=== PATIENT | female | born 1985 | race Caucasian/White ===

== ENCOUNTER 2018-03-27 09:24 | Emergency (ER) | payer OTHER ==
--- NOTE | 2018-03-27 09:44 | ER Document Report ---
ED Medical Screen (RME) - General Chief Complaint: Vag Bleeding, +preg <12wks Stated Complaint: VAGINAL BLEEDING Time Seen by Provider: 03/27/18 09:36 Notes: 33-year-old female patient to the emergency department chief complaint of vaginal bleeding and . was diagnosed last week at [facility] with blood work. Patient is a positive Rh+. Having some spotting. No pain at this time but pain at maximum was 3. Has not passed out. Does not feel dizzy. Cramping lower abdominal pelvic pain when it comes on with some mild spotting. I have greeted and performed a rapid initial assessment of this patient. A comprehensive ED assessment and evaluation of the patient, analysis of test results and completion of the medical decision making process will be conducted by additional ED providers. TRAVEL OUTSIDE OF THE [place] IN LAST 30 DAYS: No - Related Data Allergies/Adverse Reactions: cephalexin [From Keflex] Allergy (Verified 03/27/18 09:25) latex Allergy (Verified 03/27/18 09:25) Past Medical History Psychiatric Medical History: Reports: Hx Anxiety Past Surgical History: Reports: Hx Herniorrhaphy, Hx Inguinal Hernia, Hx Oral Surgery, Hx Tonsillectomy - Immunizations Immunizations up to date: Yes Hx Diphtheria, Pertussis, Tetanus Vaccination: Yes Review of Systems - Review of Systems Notes: Review of systems positive for vaginal bleeding. Pelvic cramping. Positive . Physical Exam - Vital signs Vitals: Temp Pulse Resp BP Pulse Ox 98.4 F 82 16 123/73 98 03/27/18 09:30 03/27/18 09:30 03/27/18 09:30 03/27/18 09:30 03/27/18 09:30 - General General appearance: Appears well, Alert - Abdominal Inspection: Normal Distension: No distension Bowel sounds: Normal Tenderness: Nontender. No: Tender, Guarding, Rebound Organomegaly: No organomegaly Course - Vital Signs Vital signs: Temp Pulse Resp BP Pulse Ox 98.4 F 82 16 123/73 98 03/27/18 09:30 03/27/18 09:30 03/27/18 09:30 03/27/18 09:30 03/27/18 09:30 Doctor's Discharge - Discharge Referrals: TELMA RAMOS MD [Primary Care Provider] - Follow up as needed
--- NOTE | 2018-03-27 10:03 | ER Document Report ---
ED General - General Chief Complaint: Vag Bleeding, +preg <12wks Stated Complaint: VAGINAL BLEEDING Time Seen by Provider: 03/27/18 09:36 TRAVEL OUTSIDE OF THE [place] IN LAST 30 DAYS: No - HPI Notes: Patient is a 33-year-old female was approximately 7 weeks who presents to the ED complaining of intermittent abdominal cramping and pain with light vaginal bleeding that began last night. Patient states that she currently does not have any pain. She has been eating and drinking without difficulties. She is urinating normally and having normal bowel movements. The pain does not radiate when she does have it. Patient states that she is Rh+ . She has no other concerns or complaints. She was evaluated new hospital about a week ago. Denies any headache, fever, URI, sore throat, chest pain, palpitations, syncope, cough, shortness of breath, wheeze, dyspnea, nausea/ vomiting/diarrhea, urinary retention, dysuria, hematuria, back pain, loss of control of bowel or bladder, numbness/tingling, muscle paralysis/weakness, or rash. - Related Data Allergies/Adverse Reactions: cephalexin [From Keflex] Allergy (Verified 03/27/18 09:25) latex Allergy (Verified 03/27/18 09:25) Past Medical History - Social History Smoking Status: Never Smoker Frequency of alcohol use: None Drug Abuse: None Family History: Reviewed & Not Pertinent Patient has suicidal ideation: No Patient has homicidal ideation: No Renal/ Medical History: Denies: Hx Peritoneal Dialysis Psychiatric Medical History: Reports: Hx Anxiety Past Surgical History: Reports: Hx Herniorrhaphy, Hx Inguinal Hernia, Hx Oral Surgery, Hx Tonsillectomy - Immunizations Immunizations up to date: Yes Hx Diphtheria, Pertussis, Tetanus Vaccination: Yes Review of Systems - Review of Systems -: Yes All other systems reviewed and negative Physical Exam - Vital signs Vitals: Temp Pulse Resp BP Pulse Ox 98.4 F 82 16 123/73 98 03/27/18 09:30 03/27/18 09:30 03/27/18 09:30 03/27/18 09:30 03/27/18 09:30 - Notes Notes: PHYSICAL EXAMINATION: GENERAL: Well-appearing, well-nourished and in no acute distress. LUNGS: Breath sounds clear to auscultation bilaterally and equal. No wheezes rales or rhonchi. HEART: Regular rate and rhythm without murmurs, rubs, gallops. ABDOMEN: Soft, nontender, nondistended abdomen. No guarding, no rebound. No masses appreciated. Normal bowel sounds present. No CVA tenderness bilaterally. : deferred Musculoskeletal: FROM to passive/active. Strength 5+/5. Extremities: No cyanosis, clubbing, or edema b/l. Peripheral pulses 2+. Capillary refill less than 3 seconds. NEUROLOGICAL: Normal speech, normal gait. PSYCH: Normal mood, normal affect. SKIN: Warm, Dry, normal turgor, no rashes or lesions noted. Course - Re-evaluation Re-evalutation: 03/27/18 11:28 Patient is an afebrile, well-hydrated, 33-year-old female who presents to the ED with a gestational sac noted within the uterus and pain/bleeding in early . Vitals are acceptable without any significant tachycardia, tachypnea , or hypoxia. PE is otherwise unremarkable. CBC, CMP, lipase unremarkable for acute pathology. HCG at 1344. TVUS shows evidence of the gest sac w/o sac measuring approx 6wk 1 day. + subchorionic hemorrhage noted. UA unremarkable. Patient is nontoxic-appearing is tolerating p.o. without any difficulties. No other labs or imaging warranted at this time based on H&P. Low suspicion/risk for acute appendicitis, bowel obstruction, acute cholecystitis, acute cholangitis, perforated diverticulitis, incarcerated hernia , pancreatitis, perforated ulcer, peritonitis, sepsis, pelvic inflammatory disease, ectopic , tubo-ovarian abscess, ovarian torsion, or other systemic emergent condition at this time. Patient is aware that her condition can change from initial presentation and she needs to monitor symptoms closely and seek medical attention if any acute changes. Recheck HCG in 2-3 days, may need repeat US next week as well. Conservative measures otherwise for symptoms. Recheck with your PCM/OBGYN in 3-5 days. Return to the ED with any worsening/concerning symptoms otherwise as reviewed in discharge. Patient is in agreement. - Vital Signs Vital signs: Temp Pulse Resp BP Pulse Ox 98.4 F 82 16 123/73 98 03/27/18 09:30 03/27/18 09:30 03/27/18 09:30 03/27/18 09:30 03/27/18 09:30 - Laboratory Result Diagrams: 03/27/18 10:01 03/27/18 10:01 Laboratory results interpreted by me: 03/27/18 03/27/18 09:35 10:01 Chloride 108 H ALT 63 H Beta HCG, Quant 1344.30 H Urine Blood LARGE H Discharge - Discharge Clinical Impression: Vaginal bleeding during Condition: Stable Disposition: HOME, SELF-CARE Instructions: Bleeding During Early ([facility]) Additional Instructions: Maintain fluid intake Proper hygenic technique Keep the skin clean Tylenol/ibuprofen as needed F/u with your PCM/OBGYN in 3-5 days for a recheck Have your HCG rechecked in 2-3 days as well. You may need a repeat Ultrasound performed next week (consult with OBGYN) Return to the ED with any development of [place]/fever, trouble with vision, eye redness, worsening pain, urethral discharge, urinary retention, blood in the urine, flank pain, abdominal pain, n/v, Chest Pain, shortness of breath, joint pains, trouble breathing, or any other worsening/concerning symptoms as needed otherwise. Forms: Follow-Up Laboratory Testing Referrals: TELMA RAMOS MD [ACTIVE STAFF] - Follow up as needed [facility] [Provider Group] - Follow up in 3-5 days
[2018-03-27 10:40] LABS: ABSOLUTE EOSINOPHILS # (AUTO) 0.1 10^3/uL (0.0-0.6); ABSOLUTE LYMPHOCYTES (AUTO) 1.5 10^3/uL (0.5-4.7); ABSOLUTE MONOCYTES (AUTO) 0.6 10^3/uL (0.1-1.4); ABSOLUTE NEUT (AUTO) 6.7 10^3/uL (1.7-8.2); BASOPHILS % (AUTO) 0.5 % (0-2); EOSINOPHILS % (AUTO) 1.3 % (0-6); HEMATOCRIT 41.1 % (36.0-47.0); HEMOGLOBIN 14.1 g/dL (12.0-15.5); LYMPHOCYTES % (AUTO) 17.1 % (13-45); MEAN CORPUSCULAR HEMOGLOBIN 31.5 pg (27.0-33.4); MEAN CORPUSCULAR HGB CONC 34.4 g/dL (32.0-36.0); MEAN CORPUSCULAR VOLUME 92 fl (80-97); MONOCYTES % (AUTO) 6.5 % (3-13); PLATELET COUNT 347 10^3/uL (150-450); RED BLOOD COUNT 4.48 10^6/uL (3.72-5.28); RED CELL DISTRIBUTION WIDTH 13.1 % (11.5-14.0); SEGMENTED NEUTROPHILS % (AUTO) 74.6 % (42-78); TOTAL CELLS COUNTED % (AUTO) 100 %; WHITE BLOOD COUNT 8.9 10^3/uL (4.0-10.5)
[2018-03-27 10:44] LABS: APPEARANCE,URINE CLEAR; BILIRUBIN,URINE NEGATIVE (NEGATIVE); COLOR,URINE YELLOW; GLUCOSE, URINE NEGATIVE (NEGATIVE); KETONES,URINE NEGATIVE (NEGATIVE); LEUKOCYTE ESTERASE,URINE NEGATIVE (NEGATIVE); NITRITE,URINE NEGATIVE (NEGATIVE); PROTEIN,URINE NEGATIVE (NEGATIVE); URINE SPECIFIC GRAVITY 1.006; UROBILINOGEN,URINE NEGATIVE mg/dL (<2.0)
[2018-03-27 11:04] LABS: ALANINE AMINOTRANSFERASE 63 U/L (9-52); ALBUMIN 4.2 g/dL (3.5-5.0); ALKALINE PHOSPHATASE 40 U/L (38-126); ANION GAP 12 (5-19); ASPARTATE AMINO TRANSFERASE 33 U/L (14-36); BILIRUBIN,DIRECT 0.2 mg/dL (0.0-0.4); BILIRUBIN,TOTAL 0.4 mg/dL (0.2-1.3); BLOOD UREA NITROGEN 10 mg/dL (7-20); CALCIUM 9.4 mg/dL (8.4-10.2); CARBON DIOXIDE 23 mmol/L (22-30); CHLORIDE 108 mmol/L (98-107); GLUCOSE 90 mg/dL (75-110); POTASSIUM 4.3 mmol/L (3.6-5.0); SODIUM 143.2 mmol/L (137-145); TOTAL PROTEIN 6.9 g/dL (6.3-8.2)
--- NOTE | 2018-03-27 11:13 | RADIOLOGY REPORT (SQ) ---
EXAM DESCRIPTION: U/S OB TRANSVAGINAL W/O DOP COMPLETED DATE/TIME: 03/27/2018 10:47 am REASON FOR STUDY: + pregwith vagnal bleeding ? 6-7weeks preg COMPARISON: None. TECHNIQUE: Transvaginal static and realtime grayscale images acquired of the pelvis. Additional misa cted spectral and color Doppler images recorded. All images stored on PACs. CLINICAL DATES: LMP 01/16/2018. EGA: 10 weeks 0 days. LIMITATIONS: None. FINDINGS: GESTATIONAL SAC: There is evidence of a gestational sac measuring 1.3 cm which would be c onsistent with an IUP of 6 weeks 1 day. The sac is located in the lower uterine segment. Ther e is a pointed configuration of the sac noted. Follow-up with ultrasound or serial beta hCGs would b e indicated . ULTRASOUND EGA: 6 weeks 1 day. SUBCHORIONIC BLEED: There is evidence of a subchorionic hemorrhage measuring 1.3 x 0.9 x 1.5 cm. SIZE OF BLEED: Not applicable. UTERUS: The uterus measures 9.7 x 4.3 x 4.8 cm. CERVICAL LENGTH: 3.3 cm Closed. RIGHT ADNEXA: Right ovary nonvisualized. LEFT ADNEXA: Left ovary nonvisualized. FREE FLUID: None. IMPRESSION: 1. There is evidence of a gestational sac with pointed configuration in the lower uteri ne segment. No pole identified. Follow-up with serial beta HCGs or ultrasound could be obtain ed in 5 to 7 days as further evaluation. 2. Changes of a subchorionic hemorrhage. Trimester of : First - 0 to 13 weeks. TECHNICAL DOCUMENTATION: JOB ID: [id number] [place]-[id number] 2010 [employer]- All Rights Reserved rev Reading location - IP/workstation name: [email or web address]
[2018-03-27 11:53] VITALS: BP 119/62
== END 2018-03-27 11:50 | disposition home or self-care (01) ==
LOC: ER 09:24
DX: O20.8 Other hemorrhage in early pregnancy (principal); Z3A.00 Weeks of gestation of pregnancy not specified; O26.891 Other specified pregnancy related conditions, first trimester; Z88.1 Allergy status to other antibiotic agents; Z91.040 Latex allergy status; R10.9 Unspecified abdominal pain
CPT/HCPCS: 36415; 76817; 80053; 81001; 84702; 85025; 87086; 87088; 99284

== ENCOUNTER → 2018-03-29 | Outpatient (CLI) | payer OTHER | LOC: LAB 09:35 | PROVIDERS: ATTEND Physician Assistant Medical | DX: O20.9 Hemorrhage in early pregnancy, unspecified (principal) | CPT/HCPCS: 36415; 84702 ==